=== PATIENT | male | born 1955 | race Caucasian/White ===

== ENCOUNTER 2019-10-09 09:33 | Emergency (ER) | payer SELFPAY | END 2019-10-09 09:40 | disposition left against medical advice (07) | LOC: EXPBETH 09:39 | PROVIDERS: Emergency Provider Nurse Practitioner Family | DX: Z53.21 Procedure and treatment not carried out due to patient leaving prior to being seen by health care provider (principal) | CPT/HCPCS: 99199 ==

== ENCOUNTER 2021-04-10 11:39 | Emergency (ER) | payer OTHER, SELFPAY ==
[2021-04-10 11:48] VITALS: BP 129/91; PULSE 79; RESP 14; TEMP 36.6; O2SAT 98
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
== END 2021-04-10 12:23 | disposition home or self-care (01) ==
PROVIDERS: Emergency Provider Nurse Practitioner Family
DX: M54.16 Radiculopathy, lumbar region (principal); J45.909 Unspecified asthma, uncomplicated; K21.9 Gastro-esophageal reflux disease without esophagitis; E78.00 Pure hypercholesterolemia, unspecified; I10 Essential (primary) hypertension; E11.9 Type 2 diabetes mellitus without complications
CPT/HCPCS: 99213; G0463